=== PATIENT | male | born 1965 | race Caucasian/White ===

== ENCOUNTER 2016-07-11 16:05 | Emergency (ER) | payer OTHER ==
[~2016-07-11] VITALS: Ht 170.2 cm; Wt 99.8 kg
--- NOTE | 2016-07-11 16:50 | ED GI/GU/ABDOMINAL COMPLAINT ---
History of Present Illness General Chief Complaint: General Adult Stated Complaint: PT HAS POSSIBLE KIDNEY STONE Vital Signs & Intake/Output Vital Signs & Intake/Output Vital Signs Date Time Temp Pulse Resp B/P B/P Pulse O2 O2 Flow FiO2 Mean Ox Delivery Rate 07/11 1713 99 Room Air 07/11 1628 96.8 64 20 138/95 98 Allergies Coded Allergies: No Known Allergies (07/11/16) Triage Note: PT TO ED WITH CF/O LEFT FLANK PAIN HX KIDNEY STONES. 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 Psychosocial History What is your primary language [place] Tobacco Use: Never used ETOH Use: denies use Illicit Drug Use: denies illicit drug use Progress Plan of Care: Orders Procedure Date/time Status CT ABD & PELVIS W/O IV CONTRAS 07/11 1659 Active URINALYSIS 07/11 1630 Active LIPASE 07/11 1630 Complete COMPREHENSIVE METABOLIC PANEL 07/11 1630 Complete CBC WITHOUT DIFFERENTIAL 07/11 1630 Complete AMYLASE 07/11 1630 Complete Laboratory Tests 07/11/16 1640: Anion Gap 15, Estimated GFR > 60, BUN/Creatinine Ratio 14.5, Glucose 124 H, Calcium 9.5, Total Bilirubin 0.7, AST 32, ALT 58, Alkaline Phosphatase 64, Total Protein 8.4 H, Albumin 4.7, Globulin 3.7, Albumin/Globulin Ratio 1.3, Amylase 60, Lipase 56, CBC w Diff NO MAN DIFF REQ, RBC 5.76, MCV 85.1, MCH 28.4, RDW 13.1, MPV 7.5, Gran % 81.8 H, Lymphocytes % 13.2 L, Monocytes % 3.7, Eosinophils % 0.9, Basophils % 0.4, Absolute Granulocytes 9.9 H, Absolute Lymphocytes 1.6, Absolute Monocytes 0.5, Absolute Eosinophils 0.1, Absolute Basophils 0, PUBS MCHC 33.4 Departure Departure Condition: Stable Referrals: YAMIL CELAYA MD (PCP/Family) Departure Forms: Customer Survey General Discharge Information Pending Departure Departure Condition: Stable Referrals: YAMIL CELAYA MD (PCP/Family) Departure Forms: Customer Survey General Discharge Information
[2016-07-11 16:56] LABS: ABSOLUTE BASOPHIL COUNT 0 /CUMM (0.0-0.2); ABSOLUTE EOSINOPHIL COUNT 0.1 /CUMM (0.0-0.7); ABSOLUTE GRANULOCYTE CT 9.9 /CUMM (1.4-6.5); ABSOLUTE LYMPH COUNT 1.6 /CUMM (1.2-3.4); ABSOLUTE MONOCYTE COUNT 0.5 /CUMM (0.10-0.60); BASOPHIL % 0.4 % (0.0-2.0); EOSINOPHIL % 0.9 % (0-5); GRANULOCYTE % 81.8 % (42.2-75.2); MEAN CORPUSCULAR HGB 28.4 PG (27.0-31.0); MEAN CORPUSCULAR HGB CONC 33.4 G/DL (33.0-37.0); MEAN CORPUSCULAR VOLUME 85.1 FL (80.0-94.0); MEAN PLATELET VOLUME 7.5 FL (7.4-10.4); PLATELET COUNT 252 /CUMM (130-400); RBC DISTRIBUTION WIDTH 13.1 % (11.5-14.5); RED BLOOD CELL CT 5.76 /CUMM (4.70-6.10); WHITE BLOOD CELL COUNT 12.1 /CUMM (4.8-10.8)
--- NOTE | 2016-07-11 17:14 | ED GI/GU/ABDOMINAL COMPLAINT ---
History of Present Illness General Chief Complaint: General Adult Stated Complaint: PT HAS POSSIBLE KIDNEY STONE Source: patient Exam Limitations: no limitations Vital Signs & Intake/Output Vital Signs & Intake/Output Vital Signs Date Time Temp Pulse Resp B/P B/P Pulse O2 O2 Flow FiO2 Mean Ox Delivery Rate 07/11 1713 99 Room Air 07/11 1628 96.8 64 20 138/95 98 Allergies Coded Allergies: No Known Allergies (07/11/16) Reconcile Medications Hydrocodone/Acetaminophen ([place] 5-325 Tablet) 5 MG-325 MG TABLET 1-2 TAB PO Q4-6 PRN PRN PAIN Nebivolol HCl (Bystolic) 10 MG TABLET 1 TAB PO DAILY BP (Reported) Triage Note: PT TO ED WITH CF/O LEFT FLANK PAIN HX KIDNEY STONES. Triage Nurses Notes Reviewed? yes Onset: Abrupt Duration: hour(s): (3) Timing: remote history Quality/Severity: sharpness, stabbing Severity Numbers: 8 Location: left flank Radiation: LLQ Activities at Onset: none Prior Abdominal Problems: similar symptoms Past Sexual History: Unobtainable at this time No Modifying Factors: none HPI: Patient is a 51-year-old male with history of kidney stones presenting to the emergency Department chief complaint of left flank pain, nausea and vomiting that started suddenly 3 hours ago. Patient reports history of similar symptoms of kidney stones. Denies any hematuria. No urinary frequency urgency or dysuria. Denies any chest pain or palpitations. No shortness of breath. Denies fevers or chills. Last time he had a kidney stone that was about 3 years ago. (CARLIE ALBERTS) Past History Travel History Traveled to [place] past 21 day No Medical History Any Pertinent Medical History? 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 No (CARLIE ALBERTS) Review of Systems Review of Systems Constitutional: Reports: no symptoms. Comments Review of systems: See HPI, All other systems negative. Constitutional, no chills fever or weight loss HEENT: No visual changes no sore throat no congestion Cardiovascular: No chest pain ,palpitation , orthopnea or ankle swelling Skin, no jaundice no rashes Respiratory: No dyspnea cough sputum or hemoptysis GI: No area : No dysuria No hematuria Muscle skeletal: no neck pain, Neurologic: No numbness no confusion Psych: No stress anxiety Immunology: No splenectomy or history of AIDS (CARLIE ALBERTS) Physical Exam Physical Exam General Appearance: well developed/nourished, alert, awake, comfortable, mild distress Gastrointestinal: soft, tenderness Comments: Well-developed well-nourished person in no acute distress HEENT: Pupils equally round and reactive to light and accommodation. Nose is atraumatic. Neck: Normal inspection Back: Left CVA tenderness. Full range of motion Cardiovascular: Regular rate and rhythms no murmurs rubs or gallops, normal JVP Respiratory: Chest nontender. No respiratory distress.breath sounds clear to auscultation bilaterally Abdomen: Soft, tenderness to palpation in the left lower quadrant, nondistended, no appreciable organomegaly. Normal bowel sounds. No ascites Extremity: No edema Neuro: Alert oriented x3 Skin: No appreciable rash on exposed skin, skin is warm and dry. Psych: Mood and affect is normal, memory and judgment is normal. Core Measures ACS in differential dx? No Severe Sepsis Present: No Septic Shock Present: No (CARLIE ALBERTS) Progress Differential Diagnosis: URETEROLITHIASIS, HYDRONEPHROSIS, PYELONEPHRITIS, DEHYDRATION, ELECTROLYTE ABNORMALITY, ISCHEMIC BOWEL, DIVERTICULITIS Plan of Care: Orders Procedure Date/time Status Add-on Test (ER Only) 07/11 1859 Active CULTURE,URINE 07/11 1815 Active URINALYSIS 07/11 1630 Complete LIPASE 07/11 1630 Complete COMPREHENSIVE METABOLIC PANEL 07/11 1630 Complete CBC WITHOUT DIFFERENTIAL 07/11 1630 Complete AMYLASE 07/11 1630 Complete Laboratory Tests 07/11/16 181: Urinalysis LIGHT H, Urine Color YEL, Urine Clarity HAZY H, Urine pH 6.0, Ur Specific [place] 1.025, Urine Protein 30 H, Urine Ketones TRACE H, Urine Nitrite NEG, Urine Bilirubin NEG, Urine Urobilinogen 0.2, Ur Leukocyte Esterase NEG, Ur Microscopic SEDIMENT EXAMINED, Urine RBC 25-50 H, Urine WBC RARE, Ur Epithelial Cells RARE, Urine Bacteria RARE H, Urine Mucus MOD H, Urine Hemoglobin LARGE H, Urine Glucose NEG 07/11/16 1640: Anion Gap 15, Estimated GFR > 60, BUN/Creatinine Ratio 14.5, Glucose 124 H, Calcium 9.5, Total Bilirubin 0.7, AST 32, ALT 58, Alkaline Phosphatase 64, Total Protein 8.4 H, Albumin 4.7, Globulin 3.7, Albumin/Globulin Ratio 1.3, Amylase 60, Lipase 56, CBC w Diff NO MAN DIFF REQ, RBC 5.76, MCV 85.1, MCH 28.4, RDW 13.1, MPV 7.5, Gran % 81.8 H, Lymphocytes % 13.2 L, Monocytes % 3.7, Eosinophils % 0.9, Basophils % 0.4, Absolute Granulocytes 9.9 H, Absolute Lymphocytes 1.6, Absolute Monocytes 0.5, Absolute Eosinophils 0.1, Absolute Basophils 0, PUBS MCHC 33.4 Microbiology 07/11 1814 URINE ROUT: Urine Culture - RECD Diagnostic Imaging: Viewed by Me: CT Scan. Discussed w/RAD: CT Scan. Radiology Impression: PATIENT: REBECCA GUNN PRESENT AGE: 51 PATIENT ACCOUNT NO: [id number] : 66 LOCATION: [facility] ORDERING PHYSICIAN: CARLIE LOZA SERVICE DATE: 07/11/16 EXAM TYPE: CAT - CT ABD & PELVIS W/O IV CONTRAS EXAMINATION: CT ABDOMEN AND PELVIS WITHOUT CONTRAST CLINICAL INFORMATION: Left flank pain. Rule out kidney stones COMPARISON: 12/20/2014 TECHNIQUE: Multidetector volumetric imaging was performed from the superior aspect of the liver through the pubic symphysis. Sagittal and coronal reformatted images were obtained on the technologist's workstation. DLP: 537 mGy-cm FINDINGS: LUNG BASES: There is a small to moderate-sized mixed type hiatal hernia mild dependent atelectasis is present in the lower lobes. LIVER, GALLBLADDER, AND BILIARY TREE: The liver is normal in size, shape, and attenuation. No focal hepatic lesion or biliary ductal dilatation is present. Gallbladder surgically absent. PANCREAS: Unremarkable. SPLEEN: Multiple splenules are present at the splenic hilum. Spleen is otherwise unremarkable. ADRENAL GLANDS: Unremarkable. KIDNEYS AND URETERS: A 3.2 cm exophytic water density (7 Hounsfield units) cyst is present at the anterior cortex of the interpolar region of the right kidney. There is a large water density cyst at the lower pole left kidney which extends into the interpolar region, measuring 7.3 x 6.1 x 10.2 cm. This is increased in size from 6.2 x 5.4 x 9.1 cm previously. There is mild left hydroureteronephrosis with perinephric and ureteral stranding. A punctate 2 mm calculus is present at the left ureterovesical junction on image 81/100 series 2. No right-sided renal or ureteral calculi. No right-sided hydronephrosis or hydroureter. BLADDER: Decompressed and unremarkable. GASTROINTESTINAL TRACT: Hiatal hernia as mentioned above. Stomach, small bowel, and colon are normal in caliber with no significant inflammatory wall thickening. Multiple diverticula are present in the colon. No acute diverticulitis. Appendix is unremarkable. ABDOMINAL WALL: No significant hernia is appreciated. LYMPH NODES: Normal. VASCULAR: Unremarkable. PELVIC VISCERA: Punctate central calcifications are present within the common prostate gland. Prostate gland is at the upper limits of normal in size. OSSEOUS STRUCTURES: Minimal multilevel degenerative disc disease is present in the thoracic spine. No acute osseous abnormalities. IMPRESSION: 1. A 2 mm calculus at the left ureterovesical junction produces mild left hydroureteronephrosis. 2. Progressive growth of the large 10.2 cm cyst at the left lower renal pole. 3. Small to moderate-sized hiatal hernia. 4. Mild colonic diverticulosis. No acute diverticulitis. Initial ED EKG: none Comments: Patient was able to pass a 2 mm stone while here in the emergency department. Pain free. Patient will follow-up with urology. Patient nontoxic. No signs of infected stone. Patient afebrile. She'll return for any worsening symptoms or concerns. (HOLLI LOZA,CARLIE) Departure Departure Time of Disposition: 1858 Disposition: HOME OR SELF CARE Condition: Stable Clinical Impression Primary Impression: Ureterolithiasis Referrals: LAUREL MARTINEZ,SHAINA CELAYA MD,YAMIL (PCP/Family) Additional Instructions: Follow-up with Dr. Parikh call to make an appointment. Increase fluids. If you develop any pain he can take Vicodin as prescribed. If pain is mild take over- the-counter Motrin or Tylenol. Return for worsening symptoms or concerns. PRESENT AGE: 51 PATIENT ACCOUNT NO: [id number] : 66 LOCATION: [facility] ORDERING PHYSICIAN: CARLIE LOZA SERVICE DATE: 07/11/16 EXAM TYPE: CAT - CT ABD & PELVIS W/O IV CONTRAS EXAMINATION: CT ABDOMEN AND PELVIS WITHOUT CONTRAST CLINICAL INFORMATION: Left flank pain. Rule out kidney stones COMPARISON: 12/20/2014 TECHNIQUE: Multidetector volumetric imaging was performed from the superior aspect of the liver through the pubic symphysis. Sagittal and coronal reformatted images were obtained on the technologist's workstation. DLP: 537 mGy-cm FINDINGS: LUNG BASES: There is a small to moderate-sized mixed type hiatal hernia mild dependent atelectasis is present in the lower lobes. LIVER, GALLBLADDER, AND BILIARY TREE: The liver is normal in size, shape, and attenuation. No focal hepatic lesion or biliary ductal dilatation is present. Gallbladder surgically absent. PANCREAS: Unremarkable. SPLEEN: Multiple splenules are present at the splenic hilum. Spleen is otherwise unremarkable. ADRENAL GLANDS: Unremarkable. KIDNEYS AND URETERS: A 3.2 cm exophytic water density (7 Hounsfield units) cyst is present at the anterior cortex of the interpolar region of the right kidney. There is a large water density cyst at the lower pole left kidney which extends into the interpolar region, measuring 7.3 x 6.1 x 10.2 cm. This is increased in size from 6.2 x 5.4 x 9.1 cm previously. There is mild left hydroureteronephrosis with perinephric and ureteral stranding. A punctate 2 mm calculus is present at the left ureterovesical junction on image 81/100 series 2. No right-sided renal or ureteral calculi. No right-sided hydronephrosis or hydroureter. BLADDER: Decompressed and unremarkable. GASTROINTESTINAL TRACT: Hiatal hernia as mentioned above. Stomach, small bowel, and colon are normal in caliber with no significant inflammatory wall thickening. Multiple diverticula are present in the colon. No acute diverticulitis. Appendix is unremarkable. ABDOMINAL WALL: No significant hernia is appreciated. LYMPH NODES: Normal. VASCULAR: Unremarkable. PELVIC VISCERA: Punctate central calcifications are present within the common prostate gland. Prostate gland is at the upper limits of normal in size. OSSEOUS STRUCTURES: Minimal multilevel degenerative disc disease is present in the thoracic spine. No acute osseous abnormalities. IMPRESSION: 1. A 2 mm calculus at the left ureterovesical junction produces mild left hydroureteronephrosis. 2. Progressive growth of the large 10.2 cm cyst at the left lower renal pole. 3. Small to moderate-sized hiatal hernia. 4. Mild colonic diverticulosis. No acute diverticulitis. DICTATED BY: DESMOND PLASCENCIA MD DATE/TIME DICTATED:07/11/161802 PROCESS DESCRIPTION WRITER:MARCY DATE/TIME TRANSCRIBED:07/11/161802 CONFIDENTIAL, DO NOT COPY WITHOUT APPROPRIATE AUTHORIZATION. <Electronically signed in Other Vendor System> SIGNED BY: DESMOND PLASCENCIA MD 07/11/161815 Departure Forms: Customer Survey General Discharge Information Prescriptions: Current Visit Scripts Hydrocodone/Acetaminophen ([place] 5-325 Tablet) 1-2 TAB PO Q4-6 PRN PRN PAIN #15 TAB (CARLIE ALBERTS) PA/DRYWALL SPRAYER Co-Sign Statement Statement: ED Attending supervision documentation- [] I saw and evaluated the patient. I have also reviewed all the pertinent lab results and diagnostic results. I agree with the findings and the plan of care as documented in the PA's/DRYWALL SPRAYER's documentation. [x] I have reviewed the ED Record and agree with the PA's/DRYWALL SPRAYER's documentation. [] Additions or exceptions (if any) to the PAs/DRYWALL SPRAYER's note and plan are summarized below: [] (MELVA MARTINEZ,MIKEY)
[2016-07-11] MEDS ORDERED: BYSTOLIC10 M1 PO (18:09)
--- NOTE | 2016-07-11 18:16 | CT SCAN REPORT ---
EXAMINATION: CT ABDOMEN AND PELVIS WITHOUT CONTRAST CLINICAL INFORMATION: Left flank pain. Rule out kidney stones COMPARISON: 12/20/2014 TECHNIQUE: Multidetector volumetric imaging was performed from the superior aspect of the liver through the pubic symphysis. Sagittal and coronal reformatted images were obtained on the technologist's workstation. DLP: 537 mGy-cm FINDINGS: LUNG BASES: There is a small to moderate-sized mixed type hiatal hernia mild dependent atelectasis is present in the lower lobes. LIVER, GALLBLADDER, AND BILIARY TREE: The liver is normal in size, shape, and attenuation. No focal hepatic lesion or biliary ductal dilatation is present. Gallbladder surgically absent. PANCREAS: Unremarkable. SPLEEN: Multiple splenules are present at the splenic hilum. Spleen is otherwise unremarkable. ADRENAL GLANDS: Unremarkable. KIDNEYS AND URETERS: A 3.2 cm exophytic water density (7 Hounsfield units) cyst is present at the anterior cortex of the interpolar region of the right kidney. There is a large water density cyst at the lower pole left kidney which extends into the interpolar region, measuring 7.3 x 6.1 x 10.2 cm. This is increased in size from 6.2 x 5.4 x 9.1 cm previously. There is mild left hydroureteronephrosis with perinephric and ureteral stranding. A punctate 2 mm calculus is present at the left ureterovesical junction on image 81/100 series 2. No right-sided renal or ureteral calculi. No right-sided hydronephrosis or hydroureter. BLADDER: Decompressed and unremarkable. GASTROINTESTINAL TRACT: Hiatal hernia as mentioned above. Stomach, small bowel, and colon are normal in caliber with no significant inflammatory wall thickening. Multiple diverticula are present in the colon. No acute diverticulitis. Appendix is unremarkable. ABDOMINAL WALL: No significant hernia is appreciated. LYMPH NODES: Normal. VASCULAR: Unremarkable. PELVIC VISCERA: Punctate central calcifications are present within the common prostate gland. Prostate gland is at the upper limits of normal in size. OSSEOUS STRUCTURES: Minimal multilevel degenerative disc disease is present in the thoracic spine. No acute osseous abnormalities. IMPRESSION: 1. A 2 mm calculus at the left ureterovesical junction produces mild left hydroureteronephrosis. 2. Progressive growth of the large 10.2 cm cyst at the left lower renal pole. 3. Small to moderate-sized hiatal hernia. 4. Mild colonic diverticulosis. No acute diverticulitis.
[2016-07-11] MEDS ORDERED: NORCO 5-325 TA1 EACH PO (19:01)
[2016-07-11 19:19] VITALS: BP 124/74
== END 2016-07-11 19:19 ==
LOC: ERH 16:05
PROVIDERS: Emergency Medicine
DX: N20.1 Calculus of ureter (principal); I10 Essential (primary) hypertension
CPT/HCPCS: 74176; 81001; 87086; 96374; 96375; J1885; J2405